=== PATIENT | female | born 1945 | race African-American/Black ===

== ENCOUNTER 2024-12-08 17:09 | Inpatient (IN) | payer MEDICARE, OTHER ==
[~2024-12-08] VITALS: Ht 167.6 cm; Wt 65.8 kg
[2024-12-08 18:40] LABS: BASOPHILS % (AUTO) 0.5 % (0.0-2.0); EOSINOPHILS # (AUTO) 0.2 K/uL (0.0-0.7); EOSINOPHILS % (AUTO) 2.7 % (0.0-6.0); HEMATOCRIT 36 % (33-45); LYMPHOCYTES # (AUTO) 0.6 K/uL (0.8-4.8); LYMPHOCYTES % (AUTO) 9.5 % (20.0-44.0); MEAN CORPUSCULAR HEMOGLOBIN 30 PG (26.0-33.0); MEAN CORPUSCULAR HGB CONC 34 g/dl (31.0-36.0); MEAN CORPUSCULAR VOLUME 90 fL (82-100); MONOCYTES # (AUTO) 0.8 K/uL (0.1-1.30); MONOCYTES % (AUTO) 12.9 % (2.0-12.0); NEUTROPHILS # (AUTO) 4.4 K/uL (1.8-8.9); NEUTROPHILS % (AUTO) 74.4 % (43.0-81.0); PLATELET COUNT (AUTO) 232 K/uL (150-450); RED BLOOD CELL COUNT(AUTO) 3.96 MIL/uL (4.0-5.2); RED CELL DISTRIBUTION WIDTH 15.4 % (11.5-15.0); WHITE BLOOD COUNT (AUTO) 5.9 K/uL (4.3-11.0)
[2024-12-08 18:59] LABS: CALCIUM, SERUM 8.3 mg/dL (8.5-10.1); CARBON DIOXIDE 31 mmol/L (21-32); CHLORIDE 104 mmol/L (98-107); CREATININE 0.8 mg/dL (0.6-1.3); GLUCOSE 102 mg/dL (74-106); POTASSIUM 4.3 mmol/L (3.5-5.1); SODIUM SERUM 139 mmol/L (136-145); UREA NITROGEN, BLOOD 23 mg/dL (7-18)
[2024-12-08 19:03] LABS: ALANINE AMINOTRANSFERASE 111 U/L (12-78); ALBUMIN 3.4 g/dL (3.4-5.0); ALCOHOL, BLOOD < 3 mg/dL (0-10); ALKALINE PHOSPHATASE 378 U/L (46-116); ASPARTATE AMINOTRANSFERASE 82 U/L (15-37); BILIRUBIN,DIRECT 0.2 mg/dL (0.0-0.2); BILIRUBIN,TOTAL 0.4 mg/dL (0.2-1.0); TOTAL PROTEIN, SERUM 7.9 g/dL (6.4-8.2)
[2024-12-08 19:06] LABS: ACETAMINOPHEN <10 ug/ml (10-30); SALICYLATE 1.6 mg/dL (2.8-20.0)
[2024-12-08] MEDS ORDERED: ACETAMINOPHEN ES 500 MG TABLET ONE (19:14)
[2024-12-08] MEDS: ACETAMINOPHEN ES 500 MG TABLET PO ONE (19:19)
[2024-12-09] MEDS ORDERED: AMLO-212 PO (07:51)
[2024-12-09] MEDS ORDERED: MIRT7.5T10 PO (07:51)
[2024-12-09] MEDS ORDERED: MEMA10TA PO (07:51)
[2024-12-09] MEDS ORDERED: MULT-213 PO (07:51)
[2024-12-09] MEDS ORDERED: DOCU100C36 PO (07:51)
[2024-12-09] MEDS ORDERED: ATOR20TA PO (07:51)
[2024-12-09] MEDS ORDERED: ASCO500T10 PO (07:51)
[2024-12-09] MEDS ORDERED: QUET25TA PO (07:51)
[2024-12-09] MEDS ORDERED: FOLI0.8T3 PO (07:51)
[2024-12-09] MEDS ORDERED: ACET325T53 PO (07:51)
[2024-12-09 10:40] VITALS: BP 151/84; TEMP 98.1; O2SAT 100
[2024-12-09] MEDS ORDERED: MAGNESIUM HYDROXIDE 30 ML UDC PO PRN (11:00)
[2024-12-09] MEDS: BLOOD SUGAR DIAGNOSTIC 1 EACH STRIP IN ONE (11:00)
[2024-12-09] MEDS ORDERED: ACETAMINOPHEN 325 MG TABLET PO PRN ×2 (11:00→16:00)
[2024-12-09] MEDS ORDERED: MAG HYDROX/AL HYDROX/SIMETH 30 ML UDC PO PRN (11:00)
[2024-12-09] MEDS ORDERED: QUETIAPINE FUMARATE 25 MG TABLET PO PRN (14:30)
[2024-12-09 16:00] VITALS: BP 156/83; TEMP 98; O2SAT 94
[2024-12-09] MEDS: DOCUSATE SODIUM 100 MG CAPSULE PO SCH (16:50)
[2024-12-09] MEDS: OXCARBAZEPINE 150 MG TABLET PO SCH (16:50)
[2024-12-09] MEDS: MIRTAZAPINE 15 MG TABLET PO SCH (21:17)
[2024-12-09] MEDS: ATORVASTATIN 10 MG TABLET PO SCH (21:17)
[2024-12-09 22:20] VITALS: BP 127/98; TEMP 98.1; O2SAT 96
[2024-12-10] MEDS: AMLODIPINE BESYLATE 5 MG TABLET PO SCH (09:00)
[2024-12-10] MEDS: MEMANTINE HCL 5 MG TABLET PO SCH (09:16)
[2024-12-10] MEDS: FOLIC ACID 1 MG TABLET PO SCH (09:16)
[2024-12-10] MEDS: MULTIVIT W/MINERALS 1 TAB TABLET PO SCH (09:16)
[2024-12-10] MEDS: ASCORBIC ACID 500 MG TABLET PO SCH (09:16)
[2024-12-10 15:11] VITALS: BP 113/70; TEMP 97.8; O2SAT 97
[2024-12-10 20:41] VITALS: BP 124/82; TEMP 97.9; O2SAT 100
[2024-12-11 08:00] VITALS: BP 111/71; TEMP 97.9; O2SAT 98
[2024-12-11] MEDS: OXCARBAZEPINE 150 MG TABLET PO SCH (14:54)
[2024-12-11 16:00] VITALS: BP 99/70; TEMP 99.1; O2SAT 100
[2024-12-11] MEDS: MEMANTINE HCL 5 MG TABLET PO SCH (16:41)
[2024-12-11 22:26] VITALS: BP 111/84; TEMP 99; O2SAT 99
[2024-12-12 08:00] VITALS: BP 123/64; TEMP 97.7; O2SAT 97
[2024-12-12 16:00] VITALS: BP 140/69; TEMP 97.7; O2SAT 99
[2024-12-12 22:55] VITALS: BP 119/89; TEMP 97.8; O2SAT 100
[2024-12-13 08:00] VITALS: BP 117/90; TEMP 98.6; O2SAT 98
[2024-12-13 16:00] VITALS: BP 125/83; TEMP 97.7; O2SAT 97
[2024-12-13 20:15] VITALS: BP 128/60; TEMP 99.3; O2SAT 99
[2024-12-14 08:00] VITALS: BP 95/81; TEMP 97.9; O2SAT 100
[2024-12-14 16:00] VITALS: BP 104/74; TEMP 99; O2SAT 99
[2024-12-14 19:32] LABS: APPEARANCE,URINE CLOUDY (CLEAR); BILIRUBIN,URINE NEGATIVE (NEGATIVE); BLOOD, URINE NEGATIVE Ery/uL (NEGATIVE); COLOR,URINE YELLOW (YELLOW); KETONES,URINE NEGATIVE (NEGATIVE); LEUKOCYTE ESTERASE ,URINE TRACE (NEGATIVE); NITRITE, URINE NEGATIVE (NEGATIVE); PROTEIN,URINE 1+ mg/dl (NEGATIVE); UGLUCOSE NEGATIVE (NEGATIVE); UROBILINOGEN,URINE 0.2 EU/dL (0.2)
[2024-12-14 20:08] LABS: ADD URINE CULTURE YES; BACTERIA,URINE 3+ /HPF (None Seen); MUCUS,URINE Many /LPF (None Seen); RBC,URINE 0-2 /HPF (0-2)
[2024-12-14 20:29] VITALS: BP 103/59; TEMP 98.6; O2SAT 99
[2024-12-14] MEDS: QUETIAPINE FUMARATE 25 MG TABLET PO SCH (21:34)
[2024-12-15] MEDS: NITROFURANTOIN/MONOHYDRATE MACROCRYSTALS 100 MG CAPSULE PO SCH (01:42)
[2024-12-15 08:00] VITALS: BP 122/78; TEMP 98.4; O2SAT 99
[2024-12-15 10:06] LABS: BASOPHILS % (AUTO) 0.5 % (0.0-2.0); EOSINOPHILS # (AUTO) 0.1 K/uL (0.0-0.7); HEMATOCRIT 32 % (33-45); HEMOGLOBIN 10.8 g/dL (11.5-14.8); LYMPHOCYTES # (AUTO) 0.7 K/uL (0.8-4.8); LYMPHOCYTES % (AUTO) 9.8 % (20.0-44.0); MEAN CORPUSCULAR HEMOGLOBIN 30 PG (26.0-33.0); MEAN CORPUSCULAR HGB CONC 34 g/dl (31.0-36.0); MEAN CORPUSCULAR VOLUME 90 fL (82-100); MONOCYTES # (AUTO) 0.7 K/uL (0.1-1.30); NEUTROPHILS # (AUTO) 5.4 K/uL (1.8-8.9); NEUTROPHILS % (AUTO) 77.7 % (43.0-81.0); PLATELET COUNT (AUTO) 247 K/uL (150-450); RED BLOOD CELL COUNT(AUTO) 3.61 MIL/uL (4.0-5.2); RED CELL DISTRIBUTION WIDTH 15.4 % (11.5-15.0)
[2024-12-15 10:20] LABS: CALCIUM, SERUM 9.1 mg/dL (8.5-10.1); CREATININE 0.8 mg/dL (0.6-1.3); MAGNESIUM 2.2 mg/dL (1.8-2.4); PHOSPHORUS 3.5 mg/dL (2.5-4.9); POTASSIUM 3.5 mmol/L (3.5-5.1)
[2024-12-15 16:00] VITALS: BP 108/61; TEMP 98.6; O2SAT 99
[2024-12-15 20:00] VITALS: BP 133/67; TEMP 98.6; O2SAT 97
[2024-12-16 08:00] VITALS: BP 124/74; TEMP 97.8; O2SAT 96
[2024-12-16 16:00] VITALS: BP 119/67; TEMP 98.6; O2SAT 99
[2024-12-17 08:00] VITALS: BP 133/93; TEMP 97.7; O2SAT 98
[2024-12-17 16:00] VITALS: BP 136/75; TEMP 98.6; O2SAT 96
[2024-12-17 20:00] VITALS: BP 143/63; TEMP 98.2; O2SAT 97
[2024-12-18 08:00] VITALS: BP 118/76; TEMP 98.1; O2SAT 97
[2024-12-18 16:00] VITALS: BP 137/77; TEMP 98.7; O2SAT 100
[2024-12-18 20:00] VITALS: BP 137/78; TEMP 99.3; O2SAT 99
[2024-12-18 22:44] VITALS: BP 137/78; TEMP 98; O2SAT 99
[2024-12-19] MEDS: ZOLPIDEM TARTRATE 5 MG TABLET PO PRN (00:40)
[2024-12-19 08:00] VITALS: BP 154/97; TEMP 97.8; O2SAT 97
[2024-12-19] MEDS: QUETIAPINE FUMARATE 25 MG TABLET PO SCH (09:26)
[2024-12-19 16:03] VITALS: BP 134/81; TEMP 98; O2SAT 98
[2024-12-19 16:25] LABS: ALBUMIN 3.6 g/dL (3.4-5.0); BILIRUBIN,DIRECT 0.1 mg/dL (0.0-0.2); BILIRUBIN,TOTAL 0.4 mg/dL (0.2-1.0); TOTAL PROTEIN, SERUM 8.4 g/dL (6.4-8.2)
[2024-12-19 20:00] VITALS: BP 124/76; TEMP 99.5; O2SAT 96
[2024-12-19 22:18] VITALS: BP 134/81; TEMP 97.9; O2SAT 98
[2024-12-20 08:00] VITALS: BP 122/90; TEMP 98.1; O2SAT 98
[2024-12-20 08:07] LABS: ALBUMIN 3.1 g/dL (3.4-5.0); BILIRUBIN,TOTAL 0.5 mg/dL (0.2-1.0); CALCIUM, SERUM 8.6 mg/dL (8.5-10.1); CREATININE 0.7 mg/dL (0.6-1.3); POTASSIUM 3.9 mmol/L (3.5-5.1); TOTAL PROTEIN, SERUM 7.3 g/dL (6.4-8.2)
[2024-12-20 16:00] VITALS: BP 122/76; TEMP 97.9; O2SAT 98
[2024-12-20 20:00] VITALS: BP 125/65; TEMP 97.7; O2SAT 98
[2024-12-21 08:00] VITALS: BP 123/68; TEMP 97.7; O2SAT 96
[2024-12-21 16:00] VITALS: BP 98/62; TEMP 97.9; O2SAT 99
[2024-12-21 20:00] VITALS: BP 131/87; TEMP 98; O2SAT 99
[2024-12-21 22:08] VITALS: BP 131/87; TEMP 98; O2SAT 99
[2024-12-22 08:00] VITALS: BP 126/71; TEMP 98.6; O2SAT 96
[2024-12-22 08:06] VITALS: BP 126/71; TEMP 98.6; O2SAT 96
[2024-12-22 08:58] VITALS: BP 126/71
== END 2024-12-22 14:15 | DRG 885 ==
LOC: ER 17:20 → GPS 12-09 08:58
PROVIDERS: ADMIT Psychiatry & Neurology Psychiatry; ATTEND Student in an Organized Health Care Education/Training Program
DX: F39 Unspecified mood [affective] disorder (principal); G93.41 Metabolic encephalopathy; F03.92 Unspecified dementia, unspecified severity, with psychotic disturbance; F03.93 Unspecified dementia, unspecified severity, with mood disturbance; N39.0 Urinary tract infection, site not specified; F03.918 Unspecified dementia, unspecified severity, with other behavioral disturbance; F29 Unspecified psychosis not due to a substance or known physiological condition; D50.9 Iron deficiency anemia, unspecified; I10 Essential (primary) hypertension; F32.A Depression, unspecified; Z79.899 Other long term (current) drug therapy; Z20.822 Contact with and (suspected) exposure to COVID-19; R74.01 Elevation of levels of liver transaminase levels; B96.89 Other specified bacterial agents as the cause of diseases classified elsewhere
CPT/HCPCS: 36415; 73110; 73130-TC; 80048-TC; 80053-TC; 80076-TC; 81001; 83735-TC; 84100-TC; 84484-TC; 85025-TC; 87081-TC; 87086-TC; 97116-TC; 97530-TC; G0480